=== PATIENT | female | born 1985 | race Hispanic/Latino ===

== ENCOUNTER 2020-12-18 21:04 | Observation (INO) | payer SELFPAY ==
[~2020-12-18 21:04] MED LIST: Iopamidol-370 76% 500 ML 1 ML ONE
[2020-12-18] MEDS ORDERED: Lorazepam 2 MG/ML VIAL ONE (21:32)
[2020-12-18 21:48] LABS: BHCG - Serum Negative (NEGATIVE); Pregs Control Background? CLEAR/WHITE (CLR/WHITE); Pregs Control Bar Appear? YES (CONTROL BAR)
[2020-12-18 21:52] LABS: #Lymphocytes 1.4 thou/uL (1.20-3.40); #Monocytes 0.6 thou/uL (0.11-0.59); #Neutrophils 6.7 thou/uL (1.40-6.50); %Basophils 0.2 % (0.0-1.0); %Eosinophils 0.1 % (0.0-10.0); %Lymphocytes 15.6 % (21.0-51.0); %Monocytes 7.2 % (0.0-10.0); %Neutrophils 76.9 % (42.0-75.0); Hemoglobin 14.5 g/dL (12.0-16.0); Mean Corpuscular HGB CONC 33.5 g/dL (32.0-36.0); Mean Corpuscular Hemoglobin 29.2 pg (27.0-31.0); Mean Corpuscular Volume 87.2 fL (78.0-98.0); Mean Platelet Volume 6.8 fL (7.4-10.4); Platelet Count 350 thou/uL (130-400); RBC Distribution Width 12.5 % (11.5-14.5); Red Blood Cell (RBC) Count 4.96 mill/uL (4.20-5.40); White Blood Cell (WBC) Count 8.7 thou/uL (4.8-10.8)
[2020-12-18 22:01] LABS: ALT (SGPT) 25 U/L (8-55); AST (SGOT) 30 U/L (5-34); Albumin 4.2 g/dL (3.5-5.0); Alkaline Phosphatase 68 U/L (40-110); Anion Gap 17 mmol/L (10-20); BUN (Urea Nitrogen) 20 mg/dL (7.0-18.7); Bilirubin, Total 0.4 mg/dL (0.2-1.2); CK (CPK) 126 U/L (29-168); Calc. Creatinine Clearance 0 mL/min (70-130); Calcium 10.2 mg/dL (7.8-10.44); Carbon Dioxide 22 mmol/L (22-29); Chloride 102 mmol/L (98-107); Globulin 3.6 g/dL (2.4-3.5); Glucose 97 mg/dL (70-105); Potassium 3.1 mmol/L (3.5-5.1); Protein, Total 7.8 g/dL (6.0-8.3); Sodium 138 mmol/L (136-145)
[2020-12-18] MEDS ORDERED: Aspirin Chewable 81 MG TAB ONE (23:59)
[2020-12-19] MEDS ORDERED: Morphine 4 MG/ML VIAL ONE (00:52)
[2020-12-19] MEDS ORDERED: Ondansetron PF 4 MG/2 ML Vial ONE (00:56)
[2020-12-19 01:11] LABS: SARS-CoV-2 NAA Rapid Test Not Detected (NotDetected)
[2020-12-19] MEDS ORDERED: Potassium Chloride 20 MEQ TAB ONE (01:20)
[2020-12-19] MEDS ORDERED: Nitroglycerin 2% Ointment 1 INCH/1 GM Packet ONE (01:20)
[2020-12-19 01:45] LABS: Magnesium 1.8 mg/dL (1.6-2.6)
[2020-12-19] MEDS ORDERED: Ondansetron PF 4 MG/2 ML Vial IVP PRN ×2 (02:45→03:54)
[2020-12-19] MEDS ORDERED: Acetaminophen 325 MG TAB PO PRN (02:45)
[2020-12-19] MEDS ORDERED: Ondansetron ODT 4 MG TAB SL PRN (02:45)
[2020-12-19] MEDS ORDERED: Sodium Chloride 0.9% 1,000 ML IV SCH (02:45)
[2020-12-19 02:59] VITALS: BMI 35.3
[2020-12-19 03:23] LABS: Troponin I Less than 0.010 ng/mL (< 0.028)
[2020-12-19] MEDS ORDERED: Nitroglycerin 0.4 MG TAB (25 Tab Bottle) SL PRN (03:54)
[2020-12-19] MEDS ORDERED: hydrALAZINE 20 MG/ML VIAL SLOW IVP PRN (03:58)
[2020-12-19] MEDS: Sodium Chloride 0.9% 1,000 ML IV SCH ×2 (04:40→16:20)
[2020-12-19 04:48] LABS: #Lymphocytes 0.6 thou/uL (1.20-3.40); #Monocytes 0.6 thou/uL (0.11-0.59); #Neutrophils 4.8 thou/uL (1.40-6.50); %Basophils 0.3 % (0.0-1.0); %Eosinophils 0.1 % (0.0-10.0); %Lymphocytes 10.5 % (21.0-51.0); %Monocytes 9.9 % (0.0-10.0); %Neutrophils 79.3 % (42.0-75.0); Hemoglobin 12.2 g/dL (12.0-16.0); Mean Corpuscular HGB CONC 32.5 g/dL (32.0-36.0); Mean Corpuscular Hemoglobin 28.4 pg (27.0-31.0); Mean Corpuscular Volume 87.2 fL (78.0-98.0); Mean Platelet Volume 6.6 fL (7.4-10.4); Platelet Count 298 thou/uL (130-400); RBC Distribution Width 12.2 % (11.5-14.5); Red Blood Cell (RBC) Count 4.28 mill/uL (4.20-5.40)
[2020-12-19 05:09] LABS: Troponin I Less than 0.010 ng/mL (< 0.028)
[2020-12-19 05:23] LABS: Anion Gap 15 mmol/L (10-20); BUN (Urea Nitrogen) 20 mg/dL (7.0-18.7); Calc. Creatinine Clearance 155 mL/min (70-130); Carbon Dioxide 23 mmol/L (22-29); Chloride 104 mmol/L (98-107); Potassium 3.8 mmol/L (3.5-5.1); Sodium 138 mmol/L (136-145)
[2020-12-19 05:24] LABS: Calcium 8.9 mg/dL (7.8-10.44); Cardiac Risk 2.8 (Less than 4.5); Cholesterol 182 mg/dl (< 200 Desired); Glucose 106 mg/dL (70-105); HDL Cholesterol 64 mg/dL (>60 Neg Risk); LDL Cholesterol, Calculated 90 mg/dL; Magnesium 1.9 mg/dL (1.6-2.6); Triglycerides 139 mg/dL (Less than 150)
[2020-12-19] MEDS ORDERED: Aspirin 81 mg Enteric Coated Tablet PO SCH (09:00)
[2020-12-19] MEDS ORDERED: Prevnar 13-Val Conj/PF 0.5 ML SYRINGE IM ONE (09:00)
[2020-12-19] MEDS ORDERED: FLU VACC QS2021-22(6MOS UP)/PF 60 MCG/0.5 ML SYRINGE IM ONE (09:00)
[2020-12-19] MEDS ORDERED: Non-Formulary Item 1 EACH (Leflunomide [Arava] 20 MG Tab) PO SCH (09:00)
[2020-12-19] MEDS: predniSONE 5 MG TAB PO SCH (10:43)
[2020-12-19] MEDS: Leflunomide 10 mg Tablet PO SCH (10:43)
[2020-12-19] MEDS: Acetaminophen 325 MG TAB PO PRN ×2 (10:44→18:38)
[2020-12-19] MEDS: Hydroxychloroquine Sulfate 200 MG TAB PO SCH (10:45)
[2020-12-19] MEDS ORDERED: ADENOSINE 60 MG/20 ML VIAL ONE (14:39)
[2020-12-19] MEDS ORDERED: traMADol HCl 50 MG TAB PO PRN (17:49)
[2020-12-20 05:36] LABS: #Lymphocytes 0.8 thou/uL (1.20-3.40); #Monocytes 0.5 thou/uL (0.11-0.59); #Neutrophils 2.5 thou/uL (1.40-6.50); %Eosinophils 0.2 % (0.0-10.0); %Lymphocytes 20.2 % (21.0-51.0); %Monocytes 11.9 % (0.0-10.0); %Neutrophils 67.7 % (42.0-75.0); Hemoglobin 11.5 g/dL (12.0-16.0); Mean Corpuscular HGB CONC 32.4 g/dL (32.0-36.0); Mean Corpuscular Hemoglobin 28.7 pg (27.0-31.0); Mean Corpuscular Volume 88.4 fL (78.0-98.0); Mean Platelet Volume 6.8 fL (7.4-10.4); Platelet Count 293 thou/uL (130-400); RBC Distribution Width 12.2 % (11.5-14.5); Red Blood Cell (RBC) Count 4.01 mill/uL (4.20-5.40); White Blood Cell (WBC) Count 3.8 thou/uL (4.8-10.8)
[2020-12-20 05:59] LABS: Anion Gap 11 mmol/L (10-20); BUN (Urea Nitrogen) 14 mg/dL (7.0-18.7); Calc. Creatinine Clearance 213 mL/min (70-130); Calcium 8.6 mg/dL (7.8-10.44); Carbon Dioxide 25 mmol/L (22-29); Cardiac Risk 2.7 (Less than 4.5); Chloride 106 mmol/L (98-107); Cholesterol 177 mg/dl (< 200 Desired); Glucose 87 mg/dL (70-105); HDL Cholesterol 65 mg/dL (>60 Neg Risk); LDL Cholesterol, Calculated 93 mg/dL; Magnesium 1.8 mg/dL (1.6-2.6); Potassium 3.9 mmol/L (3.5-5.1); Sodium 138 mmol/L (136-145); Triglycerides 94 mg/dL (Less than 150)
[2020-12-20] MEDS: Sodium Chloride 0.9% 1,000 ML IV SCH (06:09)
[2020-12-20] MEDS: Leflunomide 10 mg Tablet PO SCH (08:06)
[2020-12-20] MEDS: predniSONE 5 MG TAB PO SCH (08:06)
[2020-12-20] MEDS ORDERED: Enoxaparin Sodium 40 MG/0.4 ML SYRINGE SC SCH (09:00)
[2020-12-20] MEDS: Hydroxychloroquine Sulfate 200 MG TAB PO SCH (11:15)
[2020-12-20] MEDS ORDERED: Prevnar 13-Val Conj/PF 0.5 ML SYRINGE IM ONE (15:30)
[2020-12-20 15:31] VITALS: TEMP 98.3
[2020-12-20 17:24] VITALS: BP 145/94
== END 2020-12-20 17:47 | disposition home or self-care (01) ==
LOC: ERS 21:04 → 2SW 12-19 01:29
PROVIDERS: ADMIT Internal Medicine; ATTEND Internal Medicine
DX: R07.89 Other chest pain (principal); R00.0 Tachycardia, unspecified; R51.9 Headache, unspecified; N17.9 Acute kidney failure, unspecified; I12.9 Hypertensive chronic kidney disease with stage 1 through stage 4 chronic kidney disease, or unspecified chronic kidney disease; N18.9 Chronic kidney disease, unspecified; M32.9 Systemic lupus erythematosus, unspecified; E87.6 Hypokalemia; M06.9 Rheumatoid arthritis, unspecified; Z20.822 Contact with and (suspected) exposure to COVID-19; Z79.52 Long term (current) use of systemic steroids; Z79.899 Other long term (current) drug therapy
CPT/HCPCS: 36415; 71045; 71275; 78452; 80048; 80053; 80061; 82550; 83735; 83880; 84484; 84703; 85025; 85379; 85652; 86140; 90471; 90686; 93005; 93017; 93306; 96372; 96374; 96375; A9500; G0008; G0378; J0153; J1650; J2060; J2270; J2405; J7050; J7512; Q9967; U0002

== ENCOUNTER 2021-07-28 15:07 | Emergency (ER) | payer SELFPAY ==
[2021-07-28 15:41] LABS: #Lymphocytes 0.8 thou/uL (1.20-3.40); #Monocytes 0.4 thou/uL (0.11-0.59); #Neutrophils 4.1 thou/uL (1.40-6.50); %Eosinophils 0.2 % (0.0-10.0); %Lymphocytes 15.2 % (21.0-51.0); %Monocytes 7.5 % (0.0-10.0); Hemoglobin 12.4 g/dL (12.0-16.0); Mean Corpuscular HGB CONC 32.5 g/dL (32.0-36.0); Mean Corpuscular Hemoglobin 29.5 pg (27.0-31.0); Mean Corpuscular Volume 90.8 fL (78.0-98.0); Mean Platelet Volume 6.5 fL (7.4-10.4); Platelet Count 327 thou/uL (130-400); RBC Distribution Width 12.9 % (11.5-14.5); Red Blood Cell (RBC) Count 4.21 mill/uL (4.20-5.40); White Blood Cell (WBC) Count 5.3 thou/uL (4.8-10.8)
[2021-07-28 16:06] LABS: ALT (SGPT) 13 U/L (8-55); AST (SGOT) 17 U/L (5-34); Albumin 3.9 g/dL (3.5-5.0); Alkaline Phosphatase 57 U/L (40-110); Anion Gap 9 mmol/L (10-20); BUN (Urea Nitrogen) 16 mg/dL (7.0-18.7); Bilirubin, Total 0.2 mg/dL (0.2-1.2); Calc. Creatinine Clearance 0 mL/min (70-130); Carbon Dioxide 29 mmol/L (22-29); Chloride 105 mmol/L (98-107); Globulin 3.4 g/dL (2.4-3.5); Glucose 93 mg/dL (70-105); Potassium 3.9 mmol/L (3.5-5.1); Protein, Total 7.3 g/dL (6.0-8.3); Sodium 139 mmol/L (136-145)
[2021-07-28 16:20] LABS: Bilirubin Negative (Negative); Blood, Urine Negative (Negative); Clarity Clear (Clear); Glucose, Urine (Dipstick) Normal (Negative); Ketone, Urine Negative (Negative); Leukocyte Negative Leu/uL (Negative); Nitrite Negative (Negative); Protein, Urine (Dipstick) 30 mg/dL (Neg-Trace); Specific Gravity, Urine 1.037 (1.002-1.036); pH, Urine 6.5 (5.0-9.0)
[2021-07-28 16:21] LABS: Pregnancy Test - Urine (BHCG) Negative (Negative); Pregu Control Background? CLEAR/WHITE (CLR/WHITE); Pregu Control Bar Appear? YES (CONTROL BAR); Specific Gravity 1.037 (1.002-1.036)
[2021-07-28 16:31] LABS: Bacteria/HPF Rare-Few HPF (None Seen); RBC/HPF None Seen HPF (0-3); WBC/HPF None Seen HPF (0-3)
[2021-07-29 11:33] LABS: Chlamydia by PCR Not Detected (NotDetected); GC by PCR Not Detected (NotDetected)
== END 2021-07-28 17:22 | disposition home or self-care (01) ==
LOC: ERS 15:07
DX: N92.6 Irregular menstruation, unspecified (principal); I10 Essential (primary) hypertension; Z79.899 Other long term (current) drug therapy
CPT/HCPCS: 36415; 80053; 81003; 81015; 81025; 85025; 87480; 87491; 87510; 87591; 87660; 99284

== ENCOUNTER 2021-08-04 07:26 | Outpatient (CLI) | payer OTHER | END 2021-08-04 07:27 | disposition home or self-care (01) | LOC: BICULT 07:26 | PROVIDERS: ATTEND Family Medicine | DX: R10.9 Unspecified abdominal pain (principal); K76.0 Fatty (change of) liver, not elsewhere classified | CPT/HCPCS: 76700 ==

== ENCOUNTER 2021-10-03 23:04 | Emergency (ER) | payer SELFPAY ==
[2021-10-03 23:37] LABS: Bacteria/HPF None Seen HPF (None Seen); Bilirubin Negative (Negative); Blood, Urine 3+ (Negative); Clarity Turbid (Clear); Glucose, Urine (Dipstick) Normal (Negative); Ketone, Urine Trace mg/dL (Negative); Leukocyte 75 Leu/uL (Negative); Nitrite Negative (Negative); Protein, Urine (Dipstick) 30 mg/dL (Neg-Trace); RBC/HPF Greater than 50 HPF (0-3); Specific Gravity, Urine 1.029 (1.002-1.036); WBC/HPF 21-50 HPF (0-3)
[2021-10-03 23:44] LABS: #Monocytes 0.7 thou/uL (0.11-0.59); %Eosinophils 0.3 % (0.0-10.0); %Lymphocytes 18.1 % (21.0-51.0); %Monocytes 11.9 % (0.0-10.0); %Neutrophils 69.7 % (42.0-75.0); Hemoglobin 13.1 g/dL (12.0-16.0); Mean Corpuscular Volume 90.8 fL (78.0-98.0); Mean Platelet Volume 6.6 fL (7.4-10.4); Platelet Count 311 thou/uL (130-400); RBC Distribution Width 12.6 % (11.5-14.5); Red Blood Cell (RBC) Count 4.38 mill/uL (4.20-5.40); White Blood Cell (WBC) Count 5.7 thou/uL (4.8-10.8)
[2021-10-03 23:54] LABS: BHCG - Serum Negative (NEGATIVE); Pregs Control Background? CLEAR/WHITE (CLR/WHITE); Pregs Control Bar Appear? YES (CONTROL BAR)
[2021-10-03] MEDS ORDERED: Ketorolac Tromethamine 30 MG/ML VIAL ONE (23:54)
[2021-10-04 00:06] LABS: ALT (SGPT) 15 U/L (8-55); AST (SGOT) 15 U/L (5-34); Albumin 4.3 g/dL (3.5-5.0); Alkaline Phosphatase 55 U/L (40-110); Anion Gap 10 mmol/L (10-20); BUN (Urea Nitrogen) 15 mg/dL (7.0-18.7); Bilirubin, Total 0.4 mg/dL (0.2-1.2); Calc. Creatinine Clearance 0 mL/min (70-130); Carbon Dioxide 28 mmol/L (22-29); Chloride 104 mmol/L (98-107); Estimated GFR 100; Globulin 3.2 g/dL (2.4-3.5); Glucose 94 mg/dL (70-105); Lipase 31 U/L (8-78); Potassium 3.9 mmol/L (3.5-5.1); Protein, Total 7.5 g/dL (6.0-8.3); Sodium 138 mmol/L (136-145)
[2021-10-04] MEDS ORDERED: cefTRIAXone\\ROCEPHIN 500 MG VIAL ONE (01:51)
[2021-10-04] MEDS ORDERED: Lidocaine 1% MPF 2 ML VIAL ONE (01:51)
[2021-10-04 15:49] LABS: Chlamydia by PCR DETECTED (NotDetected); GC by PCR Not Detected (NotDetected)
== END 2021-10-04 04:37 | disposition home or self-care (01) ==
LOC: ERS 23:04
DX: N73.9 Female pelvic inflammatory disease, unspecified (principal); I10 Essential (primary) hypertension; Z79.899 Other long term (current) drug therapy
CPT/HCPCS: 36415; 76856; 80053; 81003; 81015; 83690; 84703; 85025; 87480; 87491; 87510; 87591; 87660; 96372; J0696; J1885

== ENCOUNTER 2022-03-22 17:59 | Emergency (ER) | payer SELFPAY ==
[2022-03-22] MEDS ORDERED: Acetaminophen 500 MG TAB ONE (19:21)
[2022-03-22] MEDS ORDERED: Metoclopramide HCl 10 MG/2 ML VIAL ONE (19:21)
[2022-03-22] MEDS ORDERED: diphenhydrAMINE 50 MG/ML VIAL ONE (19:21)
[2022-03-22 20:08] LABS: Hemoglobin 13.7 g/dL (12.0-16.0); Mean Corpuscular HGB CONC 32.7 g/dL (32.0-36.0); Mean Corpuscular Hemoglobin 29.1 pg (27.0-31.0); Mean Corpuscular Volume 89.1 fl (78.0-98.0); Mean Platelet Volume 6.6 fL (7.4-10.4); Platelet Count 272 10x3/uL (130-400); RBC Distribution Width 13.4 % (11.5-14.5); Red Blood Cell (RBC) Count 4.69 mill/uL (4.20-5.40); White Blood Cell (WBC) Count 13.2 10x3/uL (4.8-10.8)
[2022-03-22 20:31] LABS: ALT (SGPT) 37 U/L (8-55); AST (SGOT) 40 U/L (5-34); Albumin 4.2 g/dL (3.5-5.0); Alkaline Phosphatase 76 U/L (40-110); Anion Gap 16 mmol/L (10-20); BUN (Urea Nitrogen) 15 mg/dL (7.0-18.7); Band 21 % (5-11); Bilirubin, Total 0.5 mg/dL (0.2-1.2); Calc. Creatinine Clearance 0 mL/min (70-130); Calcium 9.5 mg/dL (7.8-10.44); Carbon Dioxide 23 mmol/L (22-29); Chloride 101 mmol/L (98-107); Estimated GFR 99; Globulin 3.7 g/dL (2.4-3.5); Glucose 121 mg/dL (70-105); Lymphocytes 4 % (21-51); MDiff Complete? YES; Monocytes 8 % (0-10); Neutrophil 63 % (42-75); Platelet Morphology Comment Appears Adequate; Potassium 3.9 mmol/L (3.5-5.1); Protein, Total 7.9 g/dL (6.0-8.3); RBC Morphology Normal; Reactive Lymphocytes 4 % (0-10); Sodium 136 mmol/L (136-145)
[2022-03-22] MEDS ORDERED: Fentanyl 100 MCG/2 ML VIAL ONE (22:28)
[2022-03-22] MEDS ORDERED: Ketorolac Tromethamine 30 MG/ML VIAL ONE (22:28)
[2022-03-22] MEDS ORDERED: Dexamethasone 10 MG/ML VIAL ONE (22:29)
[2022-03-22 23:08] LABS: SARS-CoV-2 NAA Rapid Test Not Detected (NotDetected)
== END 2022-03-22 23:15 | disposition home or self-care (01) ==
LOC: ERS 17:59
DX: B34.9 Viral infection, unspecified (principal); I10 Essential (primary) hypertension; G43.909 Migraine, unspecified, not intractable, without status migrainosus; D72.829 Elevated white blood cell count, unspecified; Z20.822 Contact with and (suspected) exposure to COVID-19
CPT/HCPCS: 36415; 70450; 71045; 80053; 85025; 96374; 96375; J1100; J1200; J1885; J2765; J3010

== ENCOUNTER 2024-11-22 12:07 | Emergency (ER) | payer SELFPAY ==
[~2024-11-22 12:07] MED LIST changes: -Iopamidol-370 76% 500 ML 1 ML ONE; +Iopamidol-370 76% 500 ML MDV (1 ML CHARGE) ONE
[2024-11-22] MEDS ORDERED: Ondansetron PF 4 MG/2 ML Vial ONE ×2 (14:57→18:03)
[2024-11-22 15:07] LABS: #Basophils Less than 0.03 10x3/uL (0.0-0.2); #Eosinophils Less than 0.03 10x3/uL (0.0-0.7); #Monocytes 0.51 10x3/uL (0.11-0.59); #Neutrophils 3.32 10x3/uL (1.40-6.50); %Basophils 0.2 % (0.0-1.0); %Eosinophils 0.0 % (0.0-10.0); %Lymphocytes 17.0 % (21.0-51.0); %Monocytes 11.0 % (0.0-10.0); %Neutrophils 71.6 % (42.0-75.0); Hematocrit 46.0 % (36.0-47.0); Hemoglobin 15.0 g/dL (12.0-16.0); Mean Corpuscular Hemoglobin 29.2 pg (27.0-31.0); Mean Corpuscular Volume 89.5 fL (78.0-98.0); Platelet Count 303 10x3/uL (130-400); Red Blood Cell (RBC) Count 5.14 mill/uL (4.20-5.40); White Blood Cell (WBC) Count 4.64 10x3/uL (4.8-10.8)
[2024-11-22 15:19] LABS: BHCG - Serum Negative (NEGATIVE); Pregs Control Background? CLEAR/WHITE (CLR/WHITE); Pregs Control Bar Appear? YES (CONTROL BAR)
[2024-11-22 15:24] LABS: ALT (SGPT) 50 U/L (Less than 34); AST (SGOT) 51 U/L (11-34); Albumin 4.3 g/dL (3.1-4.5); Alkaline Phosphatase 68 U/L (40-110); Anion Gap 19 mmol/L (10-20); BUN (Urea Nitrogen) 16 mg/dL (7.0-18.7); Bilirubin, Total 0.7 mg/dL (0.3-1.2); Calc. Creatinine Clearance 0 mL/min (70-130); Calcium 10.0 mg/dL (7.8-10.44); Carbon Dioxide 21 mmol/L (22-29); Chloride 104 mmol/L (98-107); Globulin 3.4 g/dL (2.4-3.5); Glucose 81 mg/dL (70-105); Lipase 38 U/L (8-78); Potassium 4.2 mmol/L (3.5-5.1); Sodium 140 mmol/L (136-145)
[2024-11-22 15:37] LABS: CAUTI Indications for Culture Dysuria,urgency,freq; Glucose, Urine (Dipstick) Normal (Negative); Leukocyte 250 Leu/uL (Negative); Protein, Urine (Dipstick) 30 mg/dL (Neg-Trace); Specific Gravity, Urine 1.018 (1.002-1.036); WBC/HPF 21-50 HPF (0-3)
[2024-11-22 15:41] LABS: Bacteria/HPF 1+ HPF (None Seen)
[2024-11-22 15:42] LABS: Urine Culture Reflex Yes Yes
[2024-11-22 18:30] LABS: Bacteria/HPF None Seen HPF (None Seen); CAUTI Indications for Culture Dysuria,urgency,freq; Glucose, Urine (Dipstick) Normal (Negative); Leukocyte Negative Leu/uL (Negative); Protein, Urine (Dipstick) Negative (Neg-Trace); RBC/HPF 0-3 HPF (0-3); Specific Gravity, Urine 1.050 (1.002-1.036); WBC/HPF 0-3 HPF (0-3)
[2024-11-22 18:34] LABS: Urine Culture Reflex No No
== END 2024-11-22 20:17 | disposition home or self-care (01) ==
LOC: ERS 12:07
DX: R11.2 Nausea with vomiting, unspecified (principal); R10.33 Periumbilical pain; I10 Essential (primary) hypertension; Z79.899 Other long term (current) drug therapy
CPT/HCPCS: 74177; 80053; 81001; 83605; 83690; 84703; 85025; 87077; 87086; 96361; 96374; 96375; 96376